=== PATIENT | female | born 1980 | race Caucasian/White ===

== ENCOUNTER 2018-05-13 16:13 | Emergency (ER) | payer OTHER ==
--- NOTE | 2018-05-13 16:39 | RAD ---
EXAM DESCRIPTION: Tibia/Fibula,Left CLINICAL HISTORY: 37 years Female looking for possible mesquite thorn or foreign obj COMPARISON: None. TECHNIQUE: LEFT tibia fibula, two views FINDINGS: No acute fractures or dislocations are identified. No osseous destructive lesions. IMPRESSION: Definite foreign object is not seen. Electronically signed by: Nancy Hoff MD 05/13/2018 4:38 PM [employer]IN[employer]ITY [employer]
[2018-05-13] MEDS ORDERED: POVIDONE IODINE 10 % 15 ML UD TOP ONE (16:52)
[2018-05-13] MEDS ORDERED: CHLORHEXIDINE GLUCONATE 4 % 15 ML UD TOP ONE (16:52)
--- NOTE | 2018-05-13 17:13 | ED.PDOC ---
History of Present Illness - General Chief Complaint: Lower Extremity Injury Stated Complaint: Wound L lower leg Time Seen by Provider: 05/13/18 17:04 Source: patient Exam Limitations: no limitations - History of Present Illness Initial Comments: PT TRIPPED AT WORK AND FELL. L LATERAL LEG COLLIDED WITH SIDE OF A TREE STUMP. IT DID NOT PUNCTURE THE JEANS BUT MAKE A PUNCTURE THROUGH HER SKIN. THE AREA IS THROBBING BUT NOT PAINFUL TO THE POINT OF NEEDING PAIN MEDICATIONS IN THE ER. RECENT TETANUS SHOT 8 MOS AGO. NO OTHER INJURIES OR PAIN COMPLAINTS. NO LOC. NO HEAD COLLISION. Occurred: just prior to arrival Pain - Lower Extremity: mild: Left Leg Method of Injury: fell Improving Factors: immobilization Worsening Factors: nothing Allergies/Adverse Reactions: Allergies NO KNOWN ALLERGY Allergy (Verified 05/13/18 16:20) Home Medications: Ambulatory Orders NK 05/13/18 Review of Systems - Review of Systems Constitutional: States: no symptoms reported EENTM: States: no symptoms reported Respiratory: States: no symptoms reported Cardiology: States: no symptoms reported Gastrointestinal/Abdominal: States: no symptoms reported Genitourinary: States: no symptoms reported Musculoskeletal: States: see HPI, muscle pain. Denies: back pain, joint pain, muscle stiffness, neck pain Skin: States: see HPI, lesions Neurological: Denies: paresthesia, weakness Endocrine: States: no symptoms reported Hematologic/Lymphatic: States: no symptoms reported All other Systems: Reviewed and Negative Past Medical History (General) - Patient Medical History Hx Stroke: No Hx of COPD: Yes Hx Congestive Heart Failure: No Hx Diabetes: No Hx MRSA: No - Vaccination History Hx Tetanus, Diphtheria Vaccination: Yes - 2018 Hx Influenza Vaccination: No Hx Pneumococcal Vaccination: No - Social History Hx Tobacco Use: Yes Hx Alcohol Use: Yes - Social Hx Substance Use: No - Female History Patient is a Female of Child Bearing Age (10 -59 yrs old): Yes Patient : No Family Medical History - Family History Mother Living Status: Hx Family Cancer: Yes - Small cell CA - lung with METs Physical Exam - Physical Exam General Appearance: Alert, Well Nourished Eyes, Ears, Nose, Throat: PERRL/EOMI, normal ENT inspection Neck: full range of motion, normal inspection Cardiovascular/Respiratory: no JVD, no respiratory distress Gastrointestinal/Abdominal: non-tender, no organomegaly Back: normal inspection, no vertebral tenderness Thigh/Hip: normal inspection, no evidence of injury, normal ROM Leg: lacerations - 1 CM PUNCTURE WOUND THROUGH THE SKIN. PROBED WITH Q-TIP - VERY SUPERFICIAL AND NO SUTURES OR GLUE INDICATED. Knee: normal inspection, no evidence of injury, normal ROM Ankle: normal inspection, no evidence of injury, normal ROM Foot: normal inspection, no evidence of injury, normal ROM Neuro/Tendon: normal sensation, normal motor functions, normal tendon functions, responds to pain, no evidence tendon injury Mental Status: alert, oriented x 3 Skin: normal color - LESION X 1 PER LEG EXAM., warm/dry Progress - Results/Orders Results/Orders: XRAY NEG FOR FOREIGN BODY OR FRACTURE. THE LEFT LEG WOUND WAS IRRIGATED AND CLEANSED WITH HIBICLENZ AND 250 ML NS TO ENSURE THE WOUND WAS CLEAN. NO CONTAMINATION PRESENT. NO SUTURES NEEDED SINCE SUPERFICIAL. NO PO ABX INDICATED SINCE WAS A CLEAN WOUND. ANTIBIOTIC OINTMENT APPLIED AND COVERED WITH GAUZE AND BANDAID. HOME INSTRUCTIONS AND RETURN PRECAUTIONS WERE GIVEN. Departure - Departure Clinical Impression: Puncture wound of left lower extremity excluding thigh Qualifiers: Encounter type: initial encounter Qualified Code(s): S81.832A - Puncture wound without foreign body, left lower leg, initial encounter Disposition: Discharge to Home or Self Care Condition: Good Departure Forms: ED Discharge - Pt. Copy, Patient Portal Self Enrollment Instructions: Wound Care (DC) Diet: resume usual diet Activity: increase activity as tolerated Home Medications: Ambulatory Orders NK 05/13/18 Additional Instructions: Please clean the area twice per day with soapy water, then apply antibiotic ointment and cover with a bandaid until it fully heals. Please see your Dr. or return to the ER if concerns arise.
[2018-05-13] MEDS ORDERED: NEOMYCIN-BACITRACIN-POLYMYXIN 0.9 GM UD TOP ONE (18:03)
[2018-05-13] MEDS ORDERED: BACITRACIN 0.9 GM UD PCKT TOP ONE (18:03)
[2018-05-13 18:15] VITALS: BP 101/76; TEMP 98.2; O2SAT 98
== END 2018-05-13 18:15 | disposition home or self-care (01) ==
LOC: ER 16:13
DX: S81.832A Puncture wound without foreign body, left lower leg, initial encounter (principal); J44.9 Chronic obstructive pulmonary disease, unspecified; Z87.891 Personal history of nicotine dependence; W01.198A Fall on same level from slipping, tripping and stumbling with subsequent striking against other object, initial encounter; Y92.69 Other specified industrial and construction area as the place of occurrence of the external cause; Y99.0 Civilian activity done for income or pay